=== PATIENT | male | born 1990 | race Caucasian/White ===

== ENCOUNTER 2024-04-04 08:40 | Outpatient (CLI) | payer OTHER, SELFPAY ==
--- OUTSIDE RECORDS SUMMARY | 2024-04-04 08:48 | XMS_ITS | Patient Health Summary ---
Author Organization [facility] Address [address] [place] [address] Care Team Providers Care V Belt Mold Assembler And Curer Name Role Phone Julissa Nichole MD Primary Care Provider [phone] Note from [facility],non-owned Affiliates and Associated Physician Practices is amultiple site organization consisting of ambulatory clinics and hospital sitesin [place], [place], [place] and [place]. This disclosure is being madepursuant to the Care Everywhere program and may not contain all information available regarding this patient. Last updated 17.[facility] Allergies No known active allergies Medications * Be aware that medications may not be up to date on this document. Alwaysverify current medications with the patient. * amphetamine-dextroamphetamine (ADDERALL) 20 MG tablet Take 20 mg by mouth every morning. 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 Social History Tobacco Use Types Packs/Day Years Used Date Smoking Tobacco: Never Smokeless Tobacco: Never Alcohol Use Standard Drinks/Week Comments Yes 0 (1 standard drink = 0.6 oz pur e alcohol) occasionally Sex and Gender Information Value Date Recorded Sex Assigned at Not on file Gender Identity Not on file Sexual Orientation Not on file Last Filed Vital Signs Vital Sign Reading Time Taken Comments Blood Pressure 122/74 08/06/2021 2:23 PM CDT Pulse 72 02/23/2018 1:50 PM NUCLEAR FUELS RECLAMATION ENGINEER Temperature 36.6 C (97.9 F) 08/06/2021 1:29 PM CDT Respiratory Rate 16 08/06/2021 1:29 PM CDT Oxygen Saturation 99% 08/06/2021 1:29 PM CDT Inhaled Oxygen Concentration - - Weight 76.2 kg (167 lb 15.9 oz) 08/06/2021 1:29 PM CDT Height 185 cm (6' 0.84 ) 08/06/2021 1:29 PM CDT Body Mass Index 22.26 08/06/2021 1:29 PM CDT Procedures * CBC W AUTO DIFFERENTIAL(Performed 08/06/2021) Performed for Acute leukemia in remission (HCC) * CBC W AUTO DIFFERENTIAL(Performed 02/23/2018) Performed for Acute leukemia in remission (HCC) * DEXA BONE DENSITY AXIAL SKELETON(Performed 02/23/2018) Performed for Acute leukemia in remission (HCC) * DEXA BONE DENSITY AXIAL SKELETON(Performed 02/14/2014) Performed for Leukemia in remission (HCC) * COMPREHENSIVE METABOLIC PANEL(Performed 02/14/2014) Performed for Leukemia in remission (HCC) * CBC W AUTO DIFFERENTIAL(Performed 02/14/2014) Performed for Leukemia in remission (HCC) * CBC W AUTO DIFFERENTIAL(Performed 10/29/2010) * GROSS EXAM PATHOLOGY(Performed 10/14/1999) * BONE MARROW BIOPSY(Performed 08/09/1996) * BONE MARROW BIOPSY(Performed 07/26/1996) * BONE MARROW BIOPSY(Performed 07/11/1996) * GROSS + MICRO EXAM(Performed 07/11/1996) Results * CBC W AUTO DIFFERENTIAL (08/06/2021 2:26 PM CDT) Only the most recent of4 resultswithin the time period is included. WBC 4.9 3.5 - 10.5 10 3/uL 08/06/2021 2:35 PM [facility] RBC 4.63 4.30 - 5.70 10 6/uL 08/06/2021 2:35 PM [facility] Hemoglobin 13.3 12.0 - 17.6 g/dL 08/06/2021 2:35 PM [facility] Hematocrit 40.2 35.2 - 51.7 % 08/06/2021 2:35 PM [facility] MCV 86.8 80.7 - 98.3 fL 08/06/2021 2:35 PM [facility] MCH 28.7 26.7 - 34.0 pg 08/06/2021 2:35 PM [facility] MCHC 33.1 30.8 - 35.9 g/dL 08/06/2021 2:35 PM [facility] Platelet Count 199 150 - 400 10 3/uL 08/06/2021 2:35 PM [facility] RDW-SD 41.3 36.0 - 50.0 fL 08/06/2021 2:35 PM [facility] RDW-CV 13.2 11.2 - 14.8 % 08/06/2021 2:35 PM [facility] MPV 10.3 9.4 - 12.9 fL 08/06/2021 2:35 PM [facility] nRBC Absolute 0.00 0 10 3/uL 08/06/2021 2:35 PM [facility] nRBC Auto 0.0 0 /100 WBC 08/06/2021 2:35 PM [facility] Neutrophils % 49.3 35.0 - 70.0 % 08/06/2021 2:35 PM [facility] Lymphocytes % 37.2 20.0 - 43.0 % 08/06/2021 2:35 PM [facility] Monocytes % 10.3 5.0 - 13.0 % 08/06/2021 2:35 PM [facility] Eosinophils % 2.2 0.0 - 6.0 % 08/06/2021 2:35 PM [facility] Basophil % 0.8 0.0 - 2.0 % 08/06/2021 2:35 PM [facility] Neutrophils Absolute 2.43 1.60 - 7.00 10 3/uL 08/06/2021 2:35 PM [facility] Lymphocyte Absolute 1.84 1.10 - 3.90 10 3/uL 08/06/2021 2:35 PM [facility] Monocytes Absolute 0.51 0.26 - 1.07 10 3/uL 08/06/2021 2:35 PM [facility] Eosinophils Absolute 0.11 0.00 - 0.47 10 3/uL 08/06/2021 2:35 PM [facility] Basophils Absolute 0.04 0.00 - 0.08 10 3/uL 08/06/2021 2:35 PM [facility] Immature Granulocytes % 0.2 0.0 - 1.0 % 08/06/2021 2:35 PM CDT [facility] Immature Granulocytes Absolute 0.01 08/06/2021 2:35 PM CDT [facility] Blood BLOOD SPECIMEN / Unknown Lab Venipuncture / Unknown 08/06/2021 2:26 PM CDT 08/06/2021 2:31 PM CDT Selvin Felipe MD LAB - HEMATOLOGY ORD ERABLES [facility] [address] [place] [address], [facility] [phone] * DEXA BONE DENSITY AXIAL SKELETON (02/23/2018 1:34 PM NUCLEAR FUELS RECLAMATION ENGINEER) Only the most recent of2 resultswithin the time period is included. Anatomical Region Laterality Modality Radiographic Adamaris ging 02/23/2018 1:56 PM NUCLEAR FUELS RECLAMATION ENGINEER Impressions 02/23/2018 1:59 PM NUCLEAR FUELS RECLAMATION ENGINEER 1. The bone mineral density of the whole body is within the expected range for age. 2. The bone mineral density of the lumbar spine is below the expected range for age consistent with osteopenia. When compared to the baseline exam of 02/14/2014 there has not been a statistically significant change in lumbar spine bone mineral density. Note that there should be an age-related increase in bone mineral density in children as a result of normal bone growth. General comments regarding interpretation of bone mineral density measurements: In children, premenopausal women and males under age 50 not at increased risk for fractures only Z-scores, not T-scores are used to indicate risk. A Z-score above -2.0 is defined as within the expected range for age and Z-score at or less than -2.0 is below the expected range for age . A Z-score below the expected range for age in a patient with recent fractures and/or chronic corticosteroid treatment is consistent with a diagnosis of osteoporosis. The World Health Organization (WHO) has defined T-scores of -1.0 to -2.5 as indicative of low bone mass (OSTEOPENIA), and T-scores of -2.5 or lower to be indicative of OSTEOPOROSIS, based on the site of lowest bone density. Reading Radiologist: Keith Adhikari MD on 02/23/2018 at 1:59 PM Narrative 02/23/2018 1:59 PM NUCLEAR FUELS RECLAMATION ENGINEER INDICATION: 27-year-old male with leukemia. Evaluate bone mineral density. Height: 182.5 cm Weight: 75.5 kg EXAMINATION: DXA OF THE Whole body and Lumbar Spine 02/23/2018 DXA budget officer: [email or web address] A ([id number]) COMPARISON: 02/14/2014 FINDINGS: The bone mineral density of each site was assessed by dual-energy x-ray absorptiometry. Findings are reported for each site as Z-Score (number of standard deviations above or below the mean of the average bone mineral density for age-and gender-matched subjects) WHOLE BODY: Z-Score: 0.3 BMD: 1.2 g/cm2 Area: 2317 cm2 SPINE: L1-4 Z-Score: -1.4 BMD: 0.94 g/cm2 Area: 66.0 cm2 Procedure Note Keith Adhikari MD - 02/23/2018 INDICATION: 27-year-old male with leukemia. Evaluate bone mineral density. Height: 182.5 cm Weight: 75.5 kg EXAMINATION: DXA OF THE Whole body and Lumbar Spine 02/23/2018 DXA budget officer: [email or web address] ([id number]) COMPARISON: 02/14/2014 FINDINGS: The bone mineral density of each site was assessed by dual-energy x-ray absorptiometry. Findings are reported for each site as Z-Score (number of standard deviations above or below the mean of the average bone mineral density for age-and gender-matched subjects) WHOLE BODY: Z-Score: 0.3 BMD: 1.2 g/cm2 Area: 2317 cm2 SPINE: L1-4 Z-Score: -1.4 BMD: 0.94 g/cm2 Area: 66.0 cm2 IMPRESSION 1. The bone mineral density of the whole body is within the expected range for age. 2. The bone mineral density of the lumbar spine is below the expected range for age consistent with osteopenia. When compared to the baseline exam of 02/14/2014 there has not been a statistically significant change in lumbar spine bone mineral density. Note that there should be an age-related increase in bone mineral density in children as a result of normal bone growth. General comments regarding interpretation of bone mineral density measurements: In children, premenopausal women and males under age 50 not at increased risk for fractures only Z-scores, not T-scores are used to indicate risk. A Z-score above -2.0 is defined as within the expected range for age and Z-score at or less than -2.0 is below the expected range for age . A Z-score below the expected range for age in a patient with recent fractures and/or chronic corticosteroid treatment is consistent with a diagnosis of osteoporosis. The World Health Organization (WHO) has defined T-scores of -1.0 to -2.5 as indicative of low bone mass (OSTEOPENIA), and T-scores of -2.5 or lower to be indicative of OSTEOPOROSIS, based on the site of lowest bone density. Reading Radiologist: Keith Adhikari MD on 02/23/2018 at 1:59 PM Selvin Felipe MD DEXA ORDERABLES * COMPREHENSIVE METABOLIC PANEL (02/14/2014 3:40 PM [facility]) Pathologist [facility] Glucose 76 70 - 105 mg/dL 02/14/2014 4:44 PM [facility] Sodium 141 136 - 145 mmol/L 02/14/2014 4:44 PM [facility] Potassium 3.6 3.5 - 5.1 mmol/L 02/14/2014 4:44 PM [facility] Chloride 103 98 - 107 mmol/L 02/14/2014 4:44 PM [facility] CO2 25 22 - 29 mmol/L 02/14/2014 4:44 PM [facility] Calcium 10.15 9.08 - 10.48 mg/dL 02/14/2014 4:44 PM [facility] Anion Gap 13 5 - 20 mmol/L 02/14/2014 4:44 PM [facility] BUN 14.6 5.3 - 18.7 mg/dL 02/14/2014 4:44 PM [facility] Creatinine 0.92 0.61 - 1.07 mg/dL 02/14/2014 4:44 PM [facility] eGFR by MDRD >60 >60 mL/min/1.7 3m2 02/14/2014 4:44 PM [facility] eGFR by MDRD >60 >60 mL/min/1.7 3m2 02/14/2014 4:44 PM [facility] Alkaline Phosphatase 55 39 - 139 U/L 02/14/2014 4:44 PM [facility] ALT 18 6 - 46 U/L 02/14/2014 4:44 PM [facility] AST 15 8 - 42 U/L 02/14/2014 4:44 PM [facility] Protein Total 8.1 6.3 - 8.2 gm/dL 02/14/2014 4:44 PM [facility] Albumin 4.8 3.3 - 4.9 gm/dL 02/14/2014 4:44 PM [facility] Bilirubin Total 1.0 0.3 - 1.2 mg/dL 02/14/2014 4:44 PM [facility] Blood BLOOD SPECIMEN / Unknown Lab Venipuncture / Unknown 02/14/2014 3:40 PM NUCLEAR FUELS RECLAMATION ENGINEER 02/14/2014 4:03 PM [facility] Selvin Felipe MD LAB - CHEMISTRY THU CARL [facility] Organization Address City/State/[facility] Phone Number [facility] [place] [address] * GROSS EXAM PATHOLOGY (10/14/1999 11:00 AM CDT) Result CASE NUMBER [id number] [facility] PATH REPORT Comment: ORDERING PHYSICIAN BEKA MARTINEZ SPECIMEN TYPE Skin CLINICAL HISTORY The patient is a 9-year-old boy who underwent removal of an infusaport. The patient is status post acute lymphoblastic leukemia. GROSS DESCRIPTION The specimen labeled with the patient's name and scar is received fresh and consists of a linear portion of wrinkled pink-hernandez skin and subcutaneous tissue measuring 3 x 0.4 x 0.2 cm. The specimen is submitted in toto as A1 . (CT/kb/akn) *MICROSCOPIC DESCRIPTION 1 H/E Sections of skin and subcutaneous tissue reveal a mild dermal mononuclear cell inflammatory infiltrate. No evidence of a leukemic infiltrate is present. The central portion of the skin is devoid of skin appendages, and the dermis contains broad bands of collagen. (DED/akn) GROSS DIAGNOSIS DIAGNOSIS A1) SKIN - SCAR. PATHOLOGIST Trista Trevizo M.D. ELECTRONICALLY TRISTA TURNER MISCELLANEOUS SAMPLES / Unknown 10/14/1999 11:00 AM CDT 10/14/1999 12:51 PM CDT Historical Provider LAB - PATHOLOGY/C YTOLOGY ORDERABLES [facility] PATH REPORT * BONE MARROW BIOPSY (08/09/1996 1:10 PM CDT) Only the most recent of3 resultswithin the time period is included. Result CASE NUMBER [id number] [facility] PATH REPORT Comment: ORDERING PHYSICIAN KENDALL MCGUIRE SPECIMEN TYPE Bone Jeff Aspirate CLINICAL HISTORY The patient is a 6-year-old boy with ALL. PERIPHERAL BLOOD PERIPHERAL BLOOD 08/09/96 Quantitative Data WBC Differential WBC 10.2 x10E3/ul 1 % Immature RBC 3.55 x10E6/ul 8 % Progranulocytes / Myelocytes Hgb 10.1 mg/dl 9 % Metamyelocytes Hct 30.1 % 14 % Band Granulocytes MCV 84.9 fl 45 % Segmented Granulocytes MCH 28.5 pg % Eosinophils MCHC 33.6 % % Basophils Retic Count % 18 % Lymphocytes Plat Count 231 x10E3/ul 5 % Monocytes % Reactive Lymphs % Atypical Lymphs % Other 100 % TOTAL COMMENTS sl aniso, poik, some poly. 4 NRBC's. BONE MARROW SMEARS Granulocyte Series Erythrocyte Series % Myeloblasts 2.0 % Pronormoblasts 0.5 % Progranulocytes 3.0 % Basophilic Normoblasts 6.0 % Myelocytes 45.5 % Poly Normoblasts 1.0 % Metamyelocytes 22.5 % Ortho Normoblasts 5.0 % Band Granulocytes 73.0 % TOTAL 5.5 % Segmented Granulocytes % Eosinophils / Precursors Other Series % Basophils / Precursors % Lymphoblasts 18.0 % TOTAL % Prolymphocytes 6.5 % Lymphocytes % Monoblasts % Promonocytes Megakaryocytes are present. 2.0 % Monocytes 0.5 % Plasma Cells / Precursors % Other 9.0 % TOTAL Histiocytes and Macrophages are present. Cellularity 60 to 70%. M E Ratio 1 3 Clot Sections show normocellular particles. (CSA akn) DIAGNOSIS DIAGNOSIS NORMOCELLULAR BONE MARROW POST-INDUCTION CHEMOTHERAPY. Inclusion Internship Kay Durán PATHOLOGIST Mitchell España M.D. ELECTRONICALLY LUNA Mitchell España MISCELLANEOUS SAMPLES / Unknown 08/09/1996 1:10 PM CDT 08/09/1996 1:15 PM CDT Historical Provider LAB - PATHOLOGY/C YTOLOGY ORDERABLES [facility] PATH REPORT * GROSS + MICRO EXAM (07/11/1996 10:55 AM CDT) Result CASE NUMBER [id number] [facility] PATH REPORT Comment: ORDERING PHYSICIAN HE BOGGS SPECIMEN TYPE Lesion-Rt. Cheek FS CLINICAL HISTORY The patient is a 6-year-old boy with a soft tissue mass of the right cheek for 3-4 month. WBC 4.7, no blasts were seen. The patient also has a cervical lymphadenopathy. *FROZEN SECTION DIAGNOSIS FROZEN SECTION DIAGNOSIS SOFT TISSUE, RIGHT CHEEK - NODULAR LYMPHOID TISSUE CANNOT RULE OUT MALIGNANCY. FINAL DIAGNOSIS DEFERRED TO PERMANENT SECTIONS. (ET/CV/hm) GROSS DESCRIPTION The specimen labeled right cheek lesion is received fresh for frozen section and gross and microscopic studies. It consists of flat round nodule measuring 3 x 3 x 1 cm. It is covered by a pink membranous tissue. On section, the mass shows light yellow, firm, slightly rubbery homogeneous surface. One sample is submitted for frozen section as A1 . One sample is submitted for flow cytometry. One sample is submitted for cytogenetic studies. Proposition Player sections are fixed in glutaraldehyde for electron microscopy. A fragment of the mass is snap frozen and kept at -70 if needed for special studies. Touch preps are performed. The remainder of the entire specimen is submitted as follows A2 is in B5 fixative the remainder of the specimen is submitted in cassettes labeled A3 through A5 . (ET/hm) MICROSCOPIC DESCRIPTION 10 slides, H/E 1 PAS 1 PAS-Diastase 1 Reticulin The sections show a malignant infiltrate of lymphoid cells with a diffuse and nodular pattern. There is infiltration of the adipose tissue and the tumor cells invade in cords the fibrous collagenous stroma. The sizes of the lymphoid cells is intermediate and small with a fine dispersed chromatin and one or two distinctive red small nucleoli. Most of the nuclei are not convoluted and there is small amount of indistinctive cytoplasm. The special stains shows increased pericellular reticulin and prominent nodularity of the infiltrate. The flow cytometry report of this lesion shows an early pre-B cell immunophenotype with positive TdT. (ET/hm) DIAGNOSIS DIAGNOSIS RIGHT CHEEK, SOFT TISSUE, EXCISION - MALIGNANT LYMPHOBLASTIC INFILTRATE OF SOFT TISSUE (EARLY PRE-B CELL BY FLOW CYTOMETRY). SEE COMMENT. COMMENT THE LYMPHOBLASTIC INFILTRATE OF THE SOFT TISSUE IS ASSOCIATED WITH A DIFFUSE INVOLVEMENT OF THE BONE MARROW ([id number]) BY THE SAME TYPE OF PRE-B CELLS. BASED SOLELY ON THE HISTOLOGY OF THIS INFILTRATE, IT IS NOT POSSIBLE TO DIFFERENTIATE BETWEEN A NON- HODGKIN'S MALIGNANT LYMPHOMA, LYMPHOBLASTIC TYPE, AND A MALIGNANT INFILTRATE SECONDARY TO AN UNUSUAL PRESENTATION OF AN ACUTE (ALEUKEMIC) LYMPHOBLASTIC LEUKEMIA SINCE BOTH SHOW THE SAME MORPHOLOGY AND THE SAME IMMUNOPHENOTYPE. A CLINICAL CORRELATION IS SUGGESTED FOR A FINAL INTERPRETATION. THIS CASE WAS CONSULTED WITH THE STAFF PATHOLOGISTS IN AN INTRADEPARTMENTAL REVIEW AND THEY CONCUR WITH THIS INTERPRETATION. Inclusion Internship DESTINY HERNANDEZ PATHOLOGIST Shamir Mcguire M.D. ELECTRONICALLY LUNA SHAMIR MCGUIRE MISCELLANEOUS SAMPLES / Unknown 07/11/1996 10:55 AM CDT 07/11/1996 12:34 PM CDT Historical Provider LAB - PATHOLOGY/C YTOLOGY ORDERABLES [facility] PATH REPORT Care Teams V Belt Mold Assembler And Curer Relationship Specialty Start Date End Date Julissa Nichole MD [address] [place] [address] [address] [place] [address] PCP - General 10/07/10
--- OUTSIDE RECORDS SUMMARY | 2024-04-04 08:48 | XMS_ITS | Clinical Summary ---
Author Organization [facility] Address [address] [place] [address] Care Team Providers Care Strap Machine Operator Name Role Phone Julissa Nichole MD Primary Care Provider [phone] Source Comments [facility],non-owned Affiliates and Associated Physician Practices is amultiple site organization consisting of ambulatory clinics and hospital sitesin [place], [place], [place] and [place]. This disclosure is being madepursuant to the Care Everywhere program and may not contain all information available regarding this patient. Last updated 17.[facility] Allergies No known active allergies Medications * Be aware that medications may not be up to date on this document. Alwaysverify current medications with the patient. Medication Sig Dispensed Refills Start Date End Date Status amphetamine-dextroamphe tamine (ADDERALL) 20 MG tablet Take 20 mg by mouth every morning. 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 Family History Medical History Relation Name Comments Cancer - Breast Maternal Grandmother Cancer Mother Aslima Hodgkins Stroke Paternal Grandfather Relation Name Status Comments Maternal Grandfather Alive Maternal Grandmother Mother Salima Paternal Grandfather Alive Paternal Grandmother Alive Social History Tobacco Use Types Packs/Day Years [...] PM CDT Pulse 72 02/23/2018 1:50 PM PRINTING GRAY CLOTH TENDER Temperature 36.6 C (97.9 F) 08/06/2021 1:29 PM CDT Respiratory Rate 16 08/06/2021 1:29 PM CDT Oxygen Saturation 99% 08/06/2021 1:29 PM CDT Inhaled Oxygen Concentration - - Weight 76.2 kg (167 lb 15.9 oz) 08/06/2021 1:29 PM CDT Height 185 cm (6' 0.84 ) 08/06/2021 1:29 PM CDT Body Mass Index 22.26 08/06/2021 1:29 PM CDT Plan of Treatment Health Maintenance Due Date Last Done Comments HIV SCREENING 2004 HEPATITIS C SCREENING 06/30/2007 DTAP/TDAP/TD VACCINES (1 - Tdap) 2008 HEPATITIS B VACCINE (1 of 3 - 19+ 3-dose series) 2008 PNEUMOCOCCAL VACCINE (1 of 2 - PCV) 2008 ZOSTER VACCINE (1 of 2) 2008 COVID-19 VACCINE (3 - Pfizer risk series) 07/07/2020 06/09/2020, 05/15/2020 INFLUENZA VACCINE (#1) 2023 DEPRESSION SCREENING 02/14/2024 HIB VACCINE Aged Out No longer eligi ble based on patient's age to complete this topic HPV VACCINE Aged Out No longer eligi ble based on patient's age to complete this topic MENINGOCOCCAL (Group B) VACCINE Aged Out No longer eligible b ased on patient's age to complete this topic MENINGOCOCCAL VACCINE Aged Out No christoph estephania eligible based on patient's age to complete this topic Care Teams Strap Machine Operator Relationship Specialty Start Date End Date Julissa Nichole MD [address] [place] [address] PCP - General 10/07/10
--- OUTSIDE RECORDS SUMMARY | 2024-04-04 08:48 | XMS_ITS | Referral Summary ---
Author Organization [facility] Address [address] [place] [address] Care Team Providers Care Advice Nurse Name Role Phone Julissa Nichole MD Primary Care Provider [phone] Source Comments [facility],non-owned Affiliates and Associated Physician Practices is amultiple site organization consisting of ambulatory clinics and hospital sitesin [place], [place], [place] and [place]. This disclosure is being madepursuant to the Care Everywhere program and may not contain all information available regarding this patient. Last updated 17.[facility] Allergies No known active allergies Medications * [...] PM CDT Pulse 72 02/23/2018 1:50 PM TRAINING SPECIALIST Temperature 36.6 C (97.9 F) 08/06/2021 1:29 PM CDT Respiratory Rate 16 08/06/2021 1:29 PM CDT Oxygen Saturation 99% 08/06/2021 1:29 PM CDT Inhaled Oxygen Concentration - - Weight 76.2 kg (167 lb 15.9 oz) 08/06/2021 1:29 PM CDT Height 185 cm (6' 0.84 ) 08/06/2021 1:29 PM CDT Body Mass Index 22.26 08/06/2021 1:29 PM CDT Plan of Treatment Not on file Care Teams Advice Nurse Relationship Specialty Start Date End Date Julissa Nichole MD [address] [place] [address] [address] [place] [address] PCP - General 10/07/10
[2024-04-04 20:18] LABS: Basophils Percent Auto 0.8 % (0.2-1.2); Hematocrit 44.2 % (42.0-52.0); Hemoglobin 14.3 g/dL (14.0-18.0); Immature Granulocyte Absolute 0.01 K/mm3 (0.00-0.031); Immature Granulocyte Percent A 0.3 % (0-0.5); Lymphocytes Absolute Auto 1.18 K/mm3 (0.9-3.2); Lymphocytes Percent Auto 30.9 % (18.3-44.2); Mean Corpuscular HGB Conc 32.4 g/dl (32-36); Mean Corpuscular Hemoglobin 28.3 pg (26-34); Mean Corpuscular Volume 87.5 fl (80-100); Mean Platelet Volume 10.6 fl (7.4-10.4); Monocytes Absolute Auto 0.5 K/mm3 (0.1-0.6); Monocytes Percent Auto 13.9 % (2.6-8.5); Neutrophils Percent Auto 53.1 % (45.5-73.1); Platelet Count Result 216 k/mm3 (150-375); Red Blood Count 5.05 M/mm3 (4.6-6.20); Red Cell Distribution Width 13.6 % (11.5-14.5); White Blood Count 3.8 K/mm3 (4.5-10.0)
[2024-04-04 20:26] LABS: Alanine Aminotransferase 22 U/L (6-50); Albumin Level 4.5 g/dL (3.5-5.1); Alkaline Phosphatase 70 U/L (38-126); Anion Gap 9 mmol/L (4-12); Aspartate Amino Transferase 25 U/L (17-59); Bilirubin,Total 0.6 mg/dL (0.2-1.3); Blood Urea Nitrogen 11 mg/dL (9-20); Calcium 9.3 mg/dL (8.4-10.2); Carbon Dioxide 30 mmol/L (22-30); Chloride 101 mmol/L (98-107); Cholesterol 203 mg/dL (0-200); Estimated Glomerular Filt Rate > 60; Glucose 91 mg/dL (65-110); HDL Direct 110 mg/dL; Potassium 3.7 mmol/L (3.4-5.0); Sodium 140 mmol/L (137-145); Triglycerides 44 mg/dL (<150)
[2024-04-04 20:42] LABS: Vitamin D 25 Hydroxy 19.2 ng/mL
[2024-04-04 20:45] LABS: LDL Cholesterol Direct 69 mg/dL
== END 2024-04-04 08:41 | disposition home or self-care (01) ==
LOC: ANHGOSHLAB 08:44
PROVIDERS: PCP Nurse Practitioner Family; Visit Provider Nurse Practitioner Family
DX: Z00.00 Encounter for general adult medical examination without abnormal findings (principal); E55.9 Vitamin D deficiency, unspecified; Z79.899 Other long term (current) drug therapy; Z13.220 Encounter for screening for lipoid disorders; Z13.29 Encounter for screening for other suspected endocrine disorder
CPT/HCPCS: 36415; 80053; 80061; 82306; 84443; 85025